=== PATIENT | female | born 1980 | race American Indian/Alaskan Native ===

== ENCOUNTER 2018-07-23 06:00 | Emergency (ER) | payer SELFPAY | END 2018-07-23 11:30 | disposition home or self-care (01) | LOC: C.ER 06:00 | CPT/HCPCS: 70450; 71046; 80053; 85025; 87040; 96374; 96375; 99285; J1200; J1885; J2765; J2930 ==

== ENCOUNTER 2018-07-24 17:30 | Emergency (ER) | payer MEDICAID | END 2018-07-24 19:19 | disposition home or self-care (01) | LOC: C.ER 17:30 | DX: L50.9 Urticaria, unspecified (principal) ==